=== PATIENT | female | born 1965 | race Caucasian/White ===

== ENCOUNTER 2017-06-25 13:04 | Day surgery (SDC) | payer OTHER ==
[~2017-06-25] VITALS: Ht 170.2 cm; Wt 59.9 kg
[~2017-06-25 13:04] MED LIST: CALCIUM 500 +1 EAC4 PO; DAILY VALUE1 EACH PO; HYDROCODON-ACE1 EAC7 PO; INDOCIN; INDOCIN50 MG PO; LISINOPRIL10 MG PO; PROBIOTIC1 EAC1 PO; PROTONIX; TYLENOL EXTRA500 MG PO; VERAPAMIL HCL120 M2 PO; VITAMIN D35000 UNIT PO; ZYRTEC10 M3 PO
[2017-06-25 13:52] VITALS: BP 135/83
[2017-06-25 16:40] VITALS: BP 140/67
[2017-06-25 17:21] VITALS: BP 118/69
== END 2017-06-25 17:38 | disposition home or self-care (01) ==
LOC: SDC 13:04
PROC: 01N50ZZ Release Median Nerve, Open Approach (ICD-10-PCS; principal; 2017-06-25)
DX: G56.01 Carpal tunnel syndrome, right upper limb (principal); I10 Essential (primary) hypertension; M85.80 Other specified disorders of bone density and structure, unspecified site; Z88.2 Allergy status to sulfonamides
CPT/HCPCS: S0020